=== PATIENT | male | born 1965 | race Caucasian/White ===

== ENCOUNTER 2019-04-05 15:49 | Outpatient (CLI) | payer OTHER ==
--- NOTE | 2019-04-05 17:33 | RAD ---
LEFT HAND TWO VIEWS: HISTORY: Hand pain. Disability evaluation. FINDINGS: Moderate to severe DJD at the first tarsometatarsal with joint narrowing and hypertrophic change. MCP joints appear unremarkable. IP joints are unremarkable. Carpals are otherwise unremarkable. IMPRESSION: Moderate to severe degenerative joint disease at the first carpometacarpal joint. POS: CHARIS[facility]
--- NOTE | 2019-04-05 17:45 | RAD ---
RADIOGRAPH LUMBAR SPINE 2 VIEWS: 04/05/2019 HISTORY: A 53-year-old male with chronic low back pain. Disability examination. COMPARISON: None available. FINDINGS: There are five lumbar type vertebrae. Dextroscoliosis with apex of curvature at the mid lumbar spine. Vertebral body heights are maintained. Degenerative retrolisthesis of L2 on L3, L3 on L4, and L4 on L5. Mild disk space narrowing at those levels. Mild to moderate disk space narrowing at L5-S1. Facet DJD at mid and lower levels. Exaggerated lordosis. IMPRESSION: 1. Mild scoliosis and exaggerated lordosis. 2. Lumbar spondylosis: lower level facet osteoarthrosis and multilevel mild to moderate degenerative disk changes. JN [] POS: TOM
--- NOTE | 2019-04-05 17:47 | RAD ---
RADIOGRAPH RIGHT KNEE TWO VIEWS: 04/05/2019 HISTORY: A 53-year-old male with chronic right knee pain. Disability examination. COMPARISON: None available. FINDINGS: AP and lateral upright standing views. Medial compartment joint space narrowing is moderate to severe, with mild sclerosis and small margina l osteophytes. Lateral compartment joint space is maintained without significant osteophytes. The medial compartment articular cartilage loss results in mild genu varus. No high grade DJD at the patellofemoral compartment. Suprapatellar joint effusion. No fracture or dislocation. IMPRESSION: 1. High grade articular cartilage thinning in the medial compartment of the right knee. 2. Joint effusion. POS: TPC
== END 2019-04-05 15:50 | disposition home or self-care (01) ==
LOC: BICRAD 15:49
PROVIDERS: ATTEND Internal Medicine
DX: Z02.71 Encounter for disability determination (principal); M25.461 Effusion, right knee; M41.9 Scoliosis, unspecified; M47.816 Spondylosis without myelopathy or radiculopathy, lumbar region; M51.36 Other intervertebral disc degeneration, lumbar region; M18.12 Unilateral primary osteoarthritis of first carpometacarpal joint, left hand
CPT/HCPCS: 72100